=== PATIENT | female | born 1980 | race African-American/Black ===

== ENCOUNTER 2016-12-22 18:19 | Emergency (ER) | payer MEDICAID, OTHER ==
[~2016-12-22] VITALS: Ht 170.2 cm; Wt 100.0 kg
[~2016-12-22 18:19] MED LIST: BACT2OIN TOP; BACT800T5 PO; HIBI4LIQ TOP
[2016-12-22 18:21] VITALS: BP 130/80; PULSE 110; RESP 15; TEMP 99.1; O2SAT 96
--- NOTE | 2016-12-22 19:28 | PD ---
HPI Chief Complaint: ENT Complaint Time Seen by Provider: 19:27 Travel History International Travel<30 days: No Contact w/Intl Traveler<30days: No Traveled to known affect area: No History of Present Illness HPI 36-year-old black female presents with a 24-hour history of fever, chills, headache, sore throat, myalgias, arthralgias, congestion, cough, nausea, vomiting and general malaise. She denies any abdominal pain. No dysuria or frequency. No diarrhea. No rashes or lesions. She did not get the flu shot this year. Symptoms are moderate. She has not taking anything for her fever or pain today. PFSH Past Medical History Cancer: No Cardiovascular Problems: Yes Gastrointestinal Disorders: Yes GERD: Yes ('SEVERAL YRS AGO') Hypertension: Yes Musculoskeletal: No Neurologic: No Respiratory: No Past Surgical History Abdominal Surgery: No Cardiac Surgery: No Cholecystectomy: Yes Ear Surgery: No Endocrine Surgery: No Eye Surgery: No Genitourinary Surgery: No Gynecologic Surgery: No Oral Surgery: No Thoracic Surgery: No Other Surgery: Yes Social History Alcohol Use: No ("RARELY") Tobacco Use: Yes (1/2 PPD) Substance Use: Yes (WEED DAILY) Allergies-Medications (Allergen,Severity, Reaction): Coded Allergies: Latex (Verified Allergy, Severe, MOUTH BROKE OUT AT DENTIST, 06/24/16) Reported Meds & Prescriptions Reported Meds & Active Scripts Active Zofran (Ondansetron HCl) 4 Mg Tab 4 Mg PO Q6HR PRN Amoxicillin 500 Mg Tab 1,000 Mg PO BID Review of Systems Except as stated in HPI: all other systems reviewed are Neg Physical Exam Narrative GENERAL: Well-nourished, well-developed patient. SKIN: Warm and dry. HEAD: Normocephalic. EYES: No scleral icterus. No injection or drainage. NECK: Supple, trachea midline. No JVD or lymphadenopathy. CARDIOVASCULAR: Regular rate and rhythm without murmurs, gallops, or rubs. RESPIRATORY: Breath sounds equal bilaterally. No accessory muscle use. GASTROINTESTINAL: Abdomen soft, non-tender, nondistended. MUSCULOSKELETAL: No cyanosis, or edema. BACK: Nontender without obvious deformity. No CVA tenderness. Data Data Last Documented VS Vital Signs Date Time Temp Pulse Resp B/P Pulse Ox O2 Delivery O2 Flow Rate FiO2 12/22/16 18:21 99.1 110 15 130/80 96 Orders Group A Rapid Strep Screen (12/22/16 19:26) Ibuprofen (Motrin) (12/22/16 19:30) Ondansetron Odt (Zofran Odt) (12/22/16 20:00) MDM Medical Decision Making Medical Screen Exam Complete: Yes Emergency Medical Condition: Yes Medical Record Reviewed: Yes Interpretation(s) Rapid strep: Positive for group A strep Differential Diagnosis MDM: High Differential diagnoses: Pneumonia, bronchitis, URI, asthma, RAD, influenza Narrative Course Patient is given Motrin 800 mg and Zofran 4 mg by mouth and a rapid strep is been ordered. Patient's rapid strep is positive. This acute strep pharyngitis Diagnosis Primary Impression: Acute streptococcal pharyngitis Patient Instructions: General Instructions Departure Forms: Tests/Procedures, Work Release Special Instructions: No work 3-5 days. Additional Instructions: Rest. Force fluids. Saltwater gargles. Tylenol and Advil. Chloraseptic [place] Cepastat lozenge. Amoxicillin, and Zofran. Follow-up with a primary care doctor in 3-7 days. Return to the ER if any problems. Med/Other Pt SpecificInfo: Prescription(s) given Scripts Ondansetron (Zofran)4 Mg Tab4 Mg PO Q6HR PRN (NAUSEA OR VOMITING) #6 TAB Prov:Alysia Gamez DO 12/22/16 Amoxicillin 500 Mg Tab1,000 Mg PO BID #40 TAB Prov:Alysia Gamez DO 12/22/16 Disposition: 01 DISCHARGE HOME Condition: Stable Papo Cantor Dec 22, 2016 19:28
[2016-12-22] MEDS ORDERED: IBUPROFEN 800 MG TAB PO ONE (19:30)
[2016-12-22] MEDS ORDERED: ONDANSETRON ODT 4 MG TAB PO ONE (20:00)
[2016-12-22] MEDS ORDERED: AMOX500T PO (20:21)
[2016-12-22] MEDS ORDERED: ZOFR4TAB PO (20:21)
[2016-12-22] MEDS ORDERED: AMOXICILLIN (TRIHYDRATE) 500 MG CAP PO ONE (20:30)
== END 2016-12-22 20:49 | disposition home or self-care (01) ==
LOC: NEPB 18:19
DX: J02.0 Streptococcal pharyngitis (principal); B95.0 Streptococcus, group A, as the cause of diseases classified elsewhere; I10 Essential (primary) hypertension; F17.210 Nicotine dependence, cigarettes, uncomplicated
CPT/HCPCS: 87880; 99283

== ENCOUNTER 2017-04-05 21:29 | Inpatient (IN) | payer SELFPAY ==
[~2017-04-05] VITALS: Ht 170.2 cm; Wt 100.0 kg
[~2017-04-05 21:29] MED LIST changes: +AMOX500T PO; -BACT2OIN TOP; -BACT800T5 PO; -HIBI4LIQ TOP; +ZOFR4TAB PO
[2017-04-05 21:33] VITALS: BP 138/91; PULSE 93; RESP 16; TEMP 98.6; O2SAT 100
[2017-04-05] MEDS ORDERED: SODIUM CHLORIDE 0.9% FLUSH 10 ML FLUSH IVF PRN (22:00)
--- NOTE | 2017-04-05 22:01 | PD ---
HPI Chief Complaint: Chest Pain Time Seen by Provider: 21:58 Travel History International Travel<30 days: No Contact w/Intl Traveler<30days: No Traveled to known affect area: No History of Present Illness HPI 36-year-old female presents to the emergency department for evaluation of left breast pain as well as left chest pain. She states this started approximately 3 days ago. She states she has had left breast pain in the past, but this is different. She states it was not painful before, but it is now painful. She states the chest pain is different than the breast pain. She denies any cardiac history. No family history of cardiac disease. She is unsure if the pain in her chest is radiating up from the breast. She has no fevers or chills. No shortness of breath. No diaphoresis. No vomiting. No abdominal pain. She has no chronic medical problems and takes no prescriptions. No recent surgery or travel. No leg edema. No hemoptysis. No history DVT/PE. PFSH Past Medical History Cancer: No Cardiovascular Problems: Yes Gastrointestinal Disorders: Yes GERD: Yes ('SEVERAL YRS AGO') Hypertension: Yes Musculoskeletal: No Neurologic: No Respiratory: No Past Surgical History Abdominal Surgery: No Cardiac Surgery: No Cholecystectomy: Yes Ear Surgery: No Endocrine Surgery: No Eye Surgery: No Genitourinary Surgery: No Gynecologic Surgery: No Oral Surgery: No Thoracic Surgery: No Other Surgery: Yes Social History Alcohol Use: No ("RARELY") Tobacco Use: Yes (1/2 PPD) Substance Use: Yes (WEED DAILY) Allergies-Medications (Allergen,Severity, Reaction): Coded Allergies: Latex (Verified Allergy, Severe, MOUTH BROKE OUT AT DENTIST, 06/24/16) Reported Meds & Prescriptions Reported Meds & Active Scripts Active Zofran (Ondansetron HCl) 4 Mg Tab 4 Mg PO Q6HR PRN Amoxicillin 500 Mg Tab 1,000 Mg PO BID Review of Systems Except as stated in HPI: all other systems reviewed are Neg Physical Exam Narrative GENERAL: Well-nourished, well-developed female patient, ambulatory. Afebrile. SKIN: Focused skin assessment warm/dry. Left breast is erythematous with a small area of induration at the 12 o'clock position just above the areola. HEAD: Normocephalic. Atraumatic. EYES: No scleral icterus. No injection or drainage. NECK: Supple, trachea midline. No JVD or lymphadenopathy. CARDIOVASCULAR: Regular rate and rhythm without murmurs, gallops, or rubs. RESPIRATORY: Breath sounds equal bilaterally. No accessory muscle use. Lungs sounds are clear to auscultation. GASTROINTESTINAL: Abdomen soft, non-tender, nondistended. MUSCULOSKELETAL: No cyanosis, or edema. BACK: Nontender without obvious deformity. No CVA tenderness. Data Data Last Documented VS Vital Signs Date Time Temp Pulse Resp B/P Pulse Ox O2 Delivery O2 Flow Rate FiO2 04/05/17 21:33 98.6 93 16 138/91 100 Room Air Orders Electrocardiogram (04/05/17 21:56) Basic Metabolic Panel (Bmp) (04/05/17 21:56) Ckmb (Isoenzyme) Profile (04/05/17 21:56) Complete Blood Count With Diff (04/05/17 21:56) Magnesium (Mg) (04/05/17 21:56) Troponin I (04/05/17 21:56) Chest, Single Ap (04/05/17 21:56) Ecg Monitoring (04/05/17 21:56) Bilateral Bp Monitoring (04/05/17 21:56) Iv Access Insert/Monitor (04/05/17 21:56) Oximetry (04/05/17 21:56) Oxygen Administration (04/05/17 21:56) Sodium Chloride 0.9% Flush (Ns Flush) (04/05/17 22:00) Us Breast Unilateral (04/05/17 ) Labs Laboratory Tests Test 04/05/17 22:01 White Blood Count 9.5 TH/MM3 Red Blood Count 4.43 MIL/MM3 Hemoglobin 12.9 GM/DL Hematocrit 38.9 % Mean Corpuscular Volume 88.0 FL Mean Corpuscular Hemoglobin 29.1 PG Mean Corpuscular Hemoglobin 33.1 % Concent Red Cell Distribution Width 14.4 % Platelet Count 345 TH/MM3 Mean Platelet Volume 7.8 FL Neutrophils (%) (Auto) 55.1 % Lymphocytes (%) (Auto) 34.6 % Monocytes (%) (Auto) 8.0 % Eosinophils (%) (Auto) 2.0 % Basophils (%) (Auto) 0.3 % Neutrophils # (Auto) 5.2 TH/MM3 Lymphocytes # (Auto) 3.3 TH/MM3 Monocytes # (Auto) 0.8 TH/MM3 Eosinophils # (Auto) 0.2 TH/MM3 Basophils # (Auto) 0.0 TH/MM3 CBC Comment DIFF FINAL Differential Comment Sodium Level 141 MEQ/L Potassium Level 3.7 MEQ/L Chloride Level 105 MEQ/L Carbon Dioxide Level 29.8 MEQ/L Anion Gap 6 MEQ/L Blood Urea Nitrogen 7 MG/DL Creatinine 0.73 MG/DL Estimat Glomerular Filtration 110 ML/MIN Rate Random Glucose 89 MG/DL Calcium Level 9.0 MG/DL Magnesium Level 2.3 MG/DL MDM Medical Decision Making Medical Screen Exam Complete: Yes Emergency Medical Condition: Yes Medical Record Reviewed: Yes Interpretation(s) chest x-ray - CONCLUSION: No acute disease. Differential Diagnosis Breast cellulitis versus abscess versus chest wall pain versus unlikely ACS Narrative Course 36-year-old female presents to the emergency department for evaluation of left breast pain as well as left chest pain. Physical exam revealed erythema and induration to the left breast. EKG, CBC, BMP, CK, troponin, magnesium, chest x- ray, ultrasound left breast are ordered and pending. EKG shows sinus rhythm, heart rate 80, no acute ST changes. CBC is unremarkable. BMP is unremarkable. CK and Troponin are pending. Magnesium is 2.3. Chest x-ray shows no acute disease. US of the left breast is pending. Dr. Hameed will follow up on ck, troponin, and US. Kayli Apodaca April 05, 2017 22:01
[2017-04-05 22:08] LABS: AUTOMATED NEUTROPHIL # 5.2 TH/MM3 (1.8-7.7); BASOPHIL % 0.3 % (0.0-2.0); EOSINOPHIL # 0.2 TH/MM3 (0-0.4); HEMATOCRIT 38.9 % (35.0-46.0); HEMO FLAGS DIFF FINAL; LYMPH % 34.6 % (9.0-44.0); LYMPHOCYTE # 3.3 TH/MM3 (1.0-4.8); MEAN CORPUSCULAR HEMOGLOBIN 29.1 PG (27.0-34.0); MEAN CORPUSCULAR HGB CONC 33.1 % (32.0-36.0); NEUT % 55.1 % (16.0-70.0); PLATELET COUNT 345 TH/MM3 (150-450); RED BLOOD COUNT 4.43 MIL/MM3 (4.00-5.30); RED CELL DISTRIBUTION WIDTH 14.4 % (11.6-17.2); WHITE BLOOD COUNT 9.5 TH/MM3 (4.0-11.0)
--- NOTE | 2017-04-05 22:20 | RADRPT ---
EXAM DATE/TIME: 04/05/2017 22:06 [facility] COMPARISON: No previous studies available for comparison. INDICATIONS : Chest pain. MEDICAL HISTORY : None. SURGICAL HISTORY : None. ENCOUNTER: Initial ACUITY: 1 day PAIN SCORE: 0/10 LOCATION: Bilateral chest FINDINGS: A single view of the chest demonstrates the lungs to be symmetrically aerated without evidence of mas s, infiltrate or effusion. The cardiomediastinal contours are unremarkable. Osseous structures are intact. CONCLUSION: No acute disease. Seferino Aguilera MD FACR on April 05, 2017 at 22:17 Board Certified Radiologist. This report was verified electronically.
[2017-04-05 22:41] LABS: ANION GAP 6 MEQ/L (5-15); BICARBONATE 29.8 MEQ/L (21.0-32.0); BLOOD UREA NITROGEN 7 MG/DL (7-18); CHLORIDE 105 MEQ/L (98-107); GLOMERULAR FILTRATION RATE 110 ML/MIN (>89); MAGNESIUM 2.3 MG/DL (1.5-2.5); POTASSIUM 3.7 MEQ/L (3.5-5.1); SODIUM (NA) 141 MEQ/L (136-145)
[2017-04-05 22:58] VITALS: BP 118/78; PULSE 70; RESP 16; O2SAT 98
[2017-04-05] MEDS ORDERED: ceFAZolin 2 GM PREMIX 50 ML IV ONE (23:00)
[2017-04-05 23:02] LABS: CREATINE KINASE 113 U/L (26-192)
--- NOTE | 2017-04-05 23:02 | PD ---
Data Data Last Documented VS Vital Signs Date Time Temp Pulse Resp B/P Pulse Ox O2 Delivery O2 Flow Rate FiO2 04/05/17 22:58 70 16 118/78 98 Room Air 04/05/17 21:33 98.6 Orders Electrocardiogram (04/05/17 21:56) Basic Metabolic Panel (Bmp) (04/05/17 21:56) Ckmb (Isoenzyme) Profile (04/05/17 21:56) Complete Blood Count With Diff (04/05/17 21:56) Magnesium (Mg) (04/05/17 21:56) Troponin I (04/05/17 21:56) Chest, Single Ap (04/05/17 21:56) Ecg Monitoring (04/05/17 21:56) Bilateral Bp Monitoring (04/05/17 21:56) Iv Access Insert/Monitor (04/05/17 21:56) Oximetry (04/05/17 21:56) Oxygen Administration (04/05/17 21:56) Sodium Chloride 0.9% Flush (Ns Flush) (04/05/17 22:00) Us Breast Unilateral (04/05/17 ) Cefazolin 2 Gm Premix (Ancef 2 Gm Premix (04/05/17 23:00) CKMB (04/05/17 22:01) CKMB% (04/05/17 22:01) Admit Order (Ed Use Only) (04/05/17 23:45) Labs Laboratory Tests Test 04/05/17 22:01 White Blood Count 9.5 TH/MM3 Red Blood Count 4.43 MIL/MM3 Hemoglobin 12.9 GM/DL Hematocrit 38.9 % Mean Corpuscular Volume 88.0 FL Mean Corpuscular Hemoglobin 29.1 PG Mean Corpuscular Hemoglobin 33.1 % Concent Red Cell Distribution Width 14.4 % Platelet Count 345 TH/MM3 Mean Platelet Volume 7.8 FL Neutrophils (%) (Auto) 55.1 % Lymphocytes (%) (Auto) 34.6 % Monocytes (%) (Auto) 8.0 % Eosinophils (%) (Auto) 2.0 % Basophils (%) (Auto) 0.3 % Neutrophils # (Auto) 5.2 TH/MM3 Lymphocytes # (Auto) 3.3 TH/MM3 Monocytes # (Auto) 0.8 TH/MM3 Eosinophils # (Auto) 0.2 TH/MM3 Basophils # (Auto) 0.0 TH/MM3 CBC Comment DIFF FINAL Differential Comment Sodium Level 141 MEQ/L Potassium Level 3.7 MEQ/L Chloride Level 105 MEQ/L Carbon Dioxide Level 29.8 MEQ/L Anion Gap 6 MEQ/L Blood Urea Nitrogen 7 MG/DL Creatinine 0.73 MG/DL Estimat Glomerular Filtration 110 ML/MIN Rate Random Glucose 89 MG/DL Calcium Level 9.0 MG/DL Magnesium Level 2.3 MG/DL Total Creatine Kinase 113 U/L Creatine Kinase MB 0.6 NG/ML Troponin I LESS THAN 0.02 NG/ML [facility] Medical Record Reviewed: Yes Supervised Visit with RISHABH: No Interpretation(s) Last Impressions Chest X-Ray 04/05/17 2156 Signed Impressions: Service Date/Time: Wednesday, April 05, 2017 22:06 - CONCLUSION: No acute disease. Seferino Aguilera MD FACR Breast Ultrasound 04/05/17 0000 Signed Impressions: Service Date/Time: Wednesday, April 05, 2017 22:15 - CONCLUSION: Complex hypoechoic mass which could represent a focal abscess, hematoma or seroma. Adelfo Medina MD Narrative Course During the course of the patients emergency department visit, the patients history, examination, and differential diagnosis were reviewed with the patient. The patient had IV access obtained and blood work sent for analysis. The patient was placed on a color television console monitor with oximetry and blood pressure monitoring. The patient was initially seen by Kayli. Please see her complete history and physical. At the conclusion of Kayli's shift, the patient's case was checked out to me. Ultrasound is pending to evaluate for possible underlying breast abscess. The patient was provided Ancef 2 g IV. The patients laboratory studies were reviewed and remarkable for a CBC that is within normal limits, BMP is unremarkable. Radiology studies were reviewed and remarkable for a chest x-ray that shows no acute abnormality. Ultrasound of the breast reveals a complex hypoechoic mass that could represent a focal abscess versus hematoma versus seroma that is 4.4 x 5.4 x 1.1 cm in size with ill-defined goals in the left breast. The patient's case was discussed with the family practice residents. They did agree to admit the patient for further evaluation and treatment at this time. The patients results were discussed with the patient, including the plan of care. I explained that further testing and/ or monitoring is indicated based on the patients history, examination, and/ or laboratory findings. Therefore, I recommended admission for additional evaluation. The patient expressed understanding and was agreeable with this plan. The patient was admitted to the hospital in stable condition and sent to a bed under the care of the family practice residents. Sepsis Criteria SIRS Criteria (2 or more): Heart rate over 90 Physician Communication Physician Communication The patient's case was discussed with the family practice residents who did agree to admit the patient for further evaluation and treatment at this time. Diagnosis Primary Impression: Infection of left breast Admitting Information Admitting Physician Requests: Admit Bernadette Hameed MD April 05, 2017 23:01
--- NOTE | 2017-04-05 23:02 | RADRPT ---
EXAM DATE/TIME: 04/05/2017 22:15 [facility] COMPARISON: No previous studies available for comparison. INDICATIONS : Left breast pain. MEDICAL HISTORY : Hypertension. Gastroesophageal reflux disease. SURGICAL HISTORY : Cholecystectomy. ENCOUNTER: Initial ACUITY: 3 days PAIN SCORE: 7/10 LOCATION: Left breast. FINDINGS: A targeted left breast ultrasound study was performed and demonstrated a complex hypoechoic to anecho ic mass in the upper breast at the 12: 00 position 4 cm from the nipple. This measures up to 4.4 x 5.4 x 1.1 cm with low level internal echo genicity and ill-defined rene. There is areas of through transmission and increased surrounding colo r flow. CONCLUSION: Complex hypoechoic mass which could represent a focal abscess, hematoma or seroma. Adelfo Medina MD on April 05, 2017 at 22:59 Board Certified Radiologist. This report was verified electronically.
[2017-04-05 23:15] LABS: CKMB 0.6 NG/ML (0.5-3.6)
[2017-04-06] VITALS (10 sets, daily range): BP systolic 115–144; BP diastolic 62–92; PULSE 58–75; RESP 14–20; TEMP 96.2–98.2; O2SAT 97–100
[2017-04-06] MEDS ORDERED: ACETAMINOPHEN 325 MG TAB PO PRN
[2017-04-06] MEDS ORDERED: ZOLPIDEM TARTRATE 5 MG TAB PO PRN
[2017-04-06] MEDS ORDERED: NALOXONE HCL 0.4 MG/ML AMP IV PRN
[2017-04-06] MEDS ORDERED: ONDANSETRON HCL 4 MG/2 ML VIAL IVP PRN
[2017-04-06] MEDS ORDERED: SODIUM CHLORIDE 0.9% FLUSH 10 ML FLUSH IV FLUSH PRN
--- NOTE | 2017-04-06 00:01 | HHI.HP ---
[facility] Service Family Medicine Primary Care Physician Unknown Admission Diagnosis Left breast infection Diagnoses: International Travel<30 Days: No Contact w/Intl Traveler<30days: No Known Affected Area: No History of Present Illness This is a 36-year-old -[place] female with no significant past medical history. She presented to the hospital due to left breast pain. The pain started 3 days ago and she thought that it was being caused by her starting her period. However when the pain continued and it worried her. She had similar breast pain in the past 6 months ago, however the pain now is much worse. She noticed some erythema of her breast 2 days ago that has been progressively worsening. Today the pain became so severe that when she was lying down, and touching her breast, pain was intolerable. She describes the pain as a throbbing discomfort. Nothing seemed to help the pain. She denies being or breast-feeding at this time. She is unaware of any traumas to the breast. Of note she claims to have gotten mammograms in the past, with benign breast findings. Also of note she denies any history of abscesses or MRSA infections Review of Systems Constitutional: DENIES: Fatigue, Fever, Weight gain, Weight loss, Chills, Dizziness Endocrine: DENIES: Polyuria Eyes: DENIES: Blurred vision, Vision loss, Double Vision Ears, nose, mouth, throat: COMPLAINS OF: Throat pain, DENIES: Hoarseness, Running Nose, Epistaxis, Sinus Pain Respiratory: DENIES: Cough, Sputum production, Shortness of breath Cardiovascular: DENIES: Chest pain, Syncope Gastrointestinal: DENIES: Black stools, Bloody stools, Diarrhea, Nausea, Vomiting Genitourinary: DENIES: Dysmenorrhea, Urinary frequency, Urinary incontinence Musculoskeletal: DENIES: Joint pain, Muscle aches, Joint Swelling, Neck pain Integumentary: COMPLAINS OF: Rash, Breast masses, DENIES: Nipple discharge Hematologic/lymphatic: DENIES: Bruising Neurologic: DENIES: Abnormal gait, Localized weakness, Seizures, Tremor Psychiatric: DENIES: Anxiety, Depression Past Family Social History Past Medical History none Past Surgical History cholecystectomy Reported Medications Reported Meds & Active Scripts Active Zofran (Ondansetron HCl) 4 Mg Tab 4 Mg PO Q6HR PRN Amoxicillin 500 Mg Tab 1,000 Mg PO BID Allergies: Coded Allergies: Latex (Verified Allergy, Severe, MOUTH BROKE OUT AT DENTIST, 06/24/16) Family History HTN Asthma Social History Live in [place] in a house, with her daughter and girlfriend No pets [employer] Denies smoking occasional alcohol smokes marijuana frequently Physical Exam Vital Signs Vital Signs Date Time Temp Pulse Resp B/P Pulse Ox O2 Delivery O2 Flow Rate FiO2 04/05/17 22:58 70 16 118/78 98 Room Air 04/05/17 21:33 98.6 93 16 138/91 100 Room Air Physical Exam With nurse present GENERAL: This is a well-nourished, well-developed patient, in no apparent distress. SKIN: 7 by 5 cm area of erythema with an area of induration on the left breast. Area of erythema is surrounding the areola HEAD: Atraumatic. Normocephalic. No temporal or scalp tenderness. EYES: Pupils equal round and reactive. Extraocular motions intact. No scleral icterus. No injection or drainage. ENT: Nose without bleeding, purulent drainage or septal hematoma. Throat without erythema, tonsillar hypertrophy or exudate. Uvula midline. Airway patent. NECK: Trachea midline. No JVD or lymphadenopathy. Supple, nontender, no meningeal signs. CARDIOVASCULAR: Regular rate and rhythm without murmurs, gallops, or rubs. RESPIRATORY: Clear to auscultation. Breath sounds equal bilaterally. No wheezes , rales, or rhonchi. GASTROINTESTINAL: Abdomen soft, non-tender, nondistended. No hepato-splenomegaly , or palpable masses. No guarding. MUSCULOSKELETAL: Extremities without clubbing, cyanosis, or edema. No joint tenderness, effusion, or edema noted. No calf tenderness. Negative Homans sign bilaterally. Tender to palpation of the left breast. NEUROLOGICAL: Awake and alert. Cranial nerves II through XII grossly intact. Motor and sensory grossly within normal limits. Five out of 5 muscle strength in all muscle groups. Normal speech. Laboratory Laboratory Tests Test 04/05/17 22:01 White Blood Count 9.5 Red Blood Count 4.43 Hemoglobin 12.9 Hematocrit 38.9 Mean Corpuscular Volume 88.0 Mean Corpuscular Hemoglobin 29.1 Mean Corpuscular Hemoglobin 33.1 Concent Red Cell Distribution Width 14.4 Platelet Count 345 Mean Platelet Volume 7.8 Neutrophils (%) (Auto) 55.1 Lymphocytes (%) (Auto) 34.6 Monocytes (%) (Auto) 8.0 Eosinophils (%) (Auto) 2.0 Basophils (%) (Auto) 0.3 Neutrophils # (Auto) 5.2 Lymphocytes # (Auto) 3.3 Monocytes # (Auto) 0.8 Eosinophils # (Auto) 0.2 Basophils # (Auto) 0.0 CBC Comment DIFF FINAL Differential Comment Sodium Level 141 Potassium Level 3.7 Chloride Level 105 Carbon Dioxide Level 29.8 Anion Gap 6 Blood Urea Nitrogen 7 Creatinine 0.73 Estimat Glomerular Filtration 110 Rate Random Glucose 89 Calcium Level 9.0 Magnesium Level 2.3 Total Creatine Kinase 113 Creatine Kinase MB 0.6 Troponin I LESS THAN 0.02 Result Diagram: 04/05/17220004/05/172200 Imaging Last Impressions Chest X-Ray 04/05/172155 Signed Impressions: Service Date/Time: Wednesday, April 05, 2017 22:06 - CONCLUSION: No acute disease. Seferino Aguilera MD FACR Breast Ultrasound 04/05/17 0000 Signed Impressions: Service Date/Time: Wednesday, April 05, 2017 22:15 - CONCLUSION: Complex hypoechoic mass which could represent a focal abscess, hematoma or seroma. Adelfo Medina MD Assessment and Plan Assessment and Plan This is a 36-year-old -[place] female with no significant past medical history. Admitted for left breast abscess. Code Status Full code Discussed Condition With [facility]: Dr. Hough Problem List: (1) Left breast abscess Status: Acute Plan: Large area of erythema on the left breast. Ultrasound shows complex hypoechoic mass which could represent a focal abscess, hematoma, or seroma. * Admitted to inpatient * Gen. surgery consulted, recommendations appreciated * Start clindamycin 300 mg IV every 8 hr * Tylenol for fever or pain 1-2 * Motrin for pain 1-2 * [place] 5/325 every 4 hours when necessary pain scale 3-5 * [place] 7.5/325 every 4 hours when necessary pain scale 6-10 * CBC, BMP ordered for the a.m. (2) Nutrition, metabolism, and development symptoms Status: Acute Plan: Diet nothing by mouth for possible I&D tomorrow Out of bed ad radha. Vitals every 4 Monitor electrolytes replace accordingly DVT prophylaxis with SCDs, holding, pharmaceutical prophylaxis for possible I&D CODE STATUS: Full code Disposition: Pending general surgery recommendations Physician Certification 2 Midnight Certification Type: Admission for Inpatient Services Order for Inpatient Services The services are ordered in accordance with Medicare regulations or non- Medicare payer requirements, as applicable. In the case of services not specified as inpatient-only, they are appropriately provided as inpatient services in accordance with the 2-midnight benchmark. Estimated LOS (days): 3 days is the estimated time the patient will need to remain in the hospital, assuming treatment plan goals are met and no additional complications. Post-Hospital Plan: Home Ryan Alfaro MD R2 April 06, 2017 00:01
[2017-04-06] MEDS ORDERED: IBUPROFEN 400 MG TAB PO PRN (00:15)
[2017-04-06] MEDS ORDERED: ACETAMINOPHEN/HYDROcodone 325 MG/5 MG TAB PO PRN (00:15)
[2017-04-06] MEDS: CLINDAMYCIN INJ 300 MG in SODIUM CHLORIDE 0.9% INJ 100 ML IV SCH ×3 (04:34→16:24)
[2017-04-06] MEDS: ACETAMINOPHEN/HYDROcodone 325 MG/7.5 MG TAB PO PRN ×2 (08:55→16:23)
[2017-04-06] MEDS ORDERED: SODIUM CHLORIDE 0.9% FLUSH 10 ML FLUSH IV FLUSH SCH (09:00)
--- NOTE | 2017-04-06 10:36 | HHI.FPPN ---
Subjective Remarks Patient seen and examined this morning. She reports that she was seen by a "female who is part of the surgery team" this am and that they are going to try and "drain it rather than going to surgery". Pain medication is helping. Denies fevers or chills, nausea or vomiting. States that she did not get any bug bites or trauma to the chest, and that she did not pick at the skin. Denies nipple discharge. She gets breast cysts with her menstrual cycle about once or twice per year, and asks what could be causing this. (Sarah Hunt MD) Objective Vitals Vital Signs Date Time Temp Pulse Resp B/P Pulse Ox O2 Delivery O2 Flow Rate FiO2 04/06/17 08:02 97.1 66 18 144/74 97 04/06/17 04:00 97.3 75 18 128/73 97 04/06/17 04:00 97.2 75 17 133/77 98 04/06/17 00:35 98.2 68 17 126/73 98 04/06/17 00:18 65 16 115/62 98 04/06/17 00:01 98 04/05/17 22:58 70 16 118/78 98 Room Air 04/05/17 21:33 98.6 93 16 138/91 100 Room Air (Sarah Hunt MD) Result Diagram: 04/05/17220004/05/172200 Imaging Last Impressions Chest X-Ray 04/05/172155 Signed Impressions: Service Date/Time: Wednesday, April 05, 2017 22:06 - CONCLUSION: No acute disease. Seferino Aguilera MD FACR Breast Ultrasound 04/05/17 0000 Signed Impressions: Service Date/Time: Wednesday, April 05, 2017 22:15 - CONCLUSION: Complex hypoechoic mass which could represent a focal abscess, hematoma or seroma. Adelfo Medina MD Objective Remarks GENERAL: This is a well-nourished, well-developed patient, in no apparent distress. SKIN: About an 8cm area of erythema with an area of induration on the left breast. Area of erythema is surrounding the areola CARDIOVASCULAR: Regular rate and rhythm without murmurs, gallops, or rubs. RESPIRATORY: Clear to auscultation. Breath sounds equal bilaterally. No wheezes , rales, or rhonchi. GASTROINTESTINAL: Abdomen soft, non-tender, nondistended. MUSCULOSKELETAL: Extremities without clubbing, cyanosis, or edema. Tender to palpation of the left breast. NEUROLOGICAL: Awake and alert. Normal speech. (Sarah Hunt MD) A/P Assessment and Plan This is a 36-year-old -[place] female with no significant past medical history. Admitted for left breast abscess. Discharge Planning Pending general surgery recommendations (Sarah Hunt MD) Attending Attestation Patient seen and examined. Case reviewed and discussed with the resident team. Agree with plan of care as discussed with me and documented in the resident note (Kj Hough MD) Problem List: (1) Left breast abscess Status: Acute Plan: Large area of erythema on the left breast. Ultrasound shows complex hypoechoic mass which could represent a focal abscess, hematoma, or seroma. * Gen. surgery consulted, recommendations appreciated. * Continue clindamycin 300 mg IV every 8 hr * Tylenol PRN fever or pain * Motrin PRN pain * [place] 5/325 every 4 hours when necessary pain scale 3-5 * [place] 7.5/325 every 4 hours when necessary pain scale 6-10 (2) Nutrition, metabolism, and development symptoms Status: Acute Plan: Diet nothing by mouth for possible surgical intervention today Out of bed ad radha. Vitals every 4 Monitor electrolytes replace accordingly DVT prophylaxis with SCDs, holding, pharmaceutical prophylaxis for possible surgical intervention CODE STATUS: Full code (Sarah Hunt MD) Sarah Hunt MD April 06, 2017 10:36 Kj Hough MD April 07, 2017 09:14
[2017-04-06] MEDS ORDERED: LIDOCAINE HCL 1% PF 30 ML VIAL ONE (13:50)
--- NOTE | 2017-04-06 14:00 | PD.CONS ---
cc: Adelfo Cortez MD HPI Service General Surgery Consult Requested By Family Medicine Residents Reason for Consult Evaluation of LEFT breast abscess Primary Care Physician Unknown History of Present Illness This is a 36 year old female with no medical history who presets to the ED with increased pressure, erythema and tenderness of her LEFT breast. She denies fevers or chills at home. She noticed her LEFT breast was slightly tender and "swollen" feeling about 8 days but increased in pain on Thursday. She was unsure if the symptoms were related to her menstrual cycle. A General Surgery consultation has been requested to evaluate LEFT breast abscess. Review of Systems Constitutional: DENIES: Fatigue, Fever, Chills Endocrine: DENIES: Abnorml menstrual pattern Eyes: DENIES: Blurred vision Ears, nose, mouth, throat: DENIES: Hearing loss, Vertigo Respiratory: DENIES: Apneas, Cough Cardiovascular: DENIES: Chest pain Gastrointestinal: DENIES: Abdominal pain Genitourinary: DENIES: Urinary frequency, Urinary incontinence Musculoskeletal: DENIES: Joint pain Integumentary: COMPLAINS OF: Breast skin changes (tender to palpation; redness superior to nipple ) Hematologic/lymphatic: DENIES: Bruising Immunologic/allergic: DENIES: Eczema Neurologic: DENIES: Headache, Localized weakness Psychiatric: DENIES: Confusion, Mood changes, Depression Past Family Social History Past Medical History None Past Surgical History Laparoscopic cholecystectomy Reported Medications No home medications Allergies: Coded Allergies: Latex (Verified Allergy, Severe, MOUTH BROKE OUT AT DENTIST, 06/24/16) Active Ordered Medications Current Medications Medications (Trade) Dose Ordered Sig/Jori Route Start Time Stop Time Status Last Admin (NS Flush) 2 ml UNSCH PRN IV FLUSH 04/06/17 00:00 (NS Flush) 2 ml BID IV FLUSH 04/06/17 09:00 04/06/17 08:56 (Tylenol) 650 mg Q4H PRN PO 04/06/17 00:00 (Zofran Inj) 4 mg Q6H PRN IVP 04/06/17 00:00 04/06/17 08:56 (Ambien) 5 mg HS PRN PO 04/06/17 00:00 Naloxone HCl 0.4 mg 0.4 mg UNSCH PRN IV 04/06/17 00:00 (Cleocin Inj/NS Inj) 102 ml @ 104 mls/hr Q8H IV 04/06/17 00:15 04/06/17 08:56 (Motrin) 400 mg Q6H PRN PO 04/06/17 00:15 (Bruno 5-325 Mg) 1 tab Q4H PRN PO 04/06/17 00:15 (Bruno 7.5-325 Mg) 1 tab Q4H PRN PO 04/06/17 00:15 04/06/17 08:55 Family History No family history of breast cancer Social History Denies tobacco use Occasional ETOH use + marijuana use Physical Exam Vital Signs Vital Signs Date Time Temp Pulse Resp B/P Pulse Ox O2 Delivery O2 Flow Rate FiO2 04/06/17 12:28 96.2 67 20 122/76 100 04/06/17 08:05 98 21 04/06/17 08:02 97.1 66 18 144/74 97 04/06/17 04:00 97.3 75 18 128/73 97 04/06/17 04:00 97.2 75 17 133/77 98 04/06/17 00:35 98.2 68 17 126/73 98 04/06/17 00:18 65 16 115/62 98 04/06/17 00:01 98 04/05/17 22:58 70 16 118/78 98 Room Air 04/05/17 21:33 98.6 93 16 138/91 100 Room Air Physical Exam GENERAL: Pleasant 36 year old female resting in bed in no acute distress. SKIN: LEFT breast---- hardened area with erythema at the 2 o'clock position; tenderness with palpation. Otherwise unremarkable. HEAD: Atraumatic. Normocephalic. EYES: Pupils equal and round. No scleral icterus. No injection or drainage. ENT: No nasal bleeding or discharge. Mucous membranes pink and moist. NECK: Trachea midline. CARDIOVASCULAR: Regular rate and rhythm. RESPIRATORY: No accessory muscle use. Clear to auscultation. Breath sounds equal bilaterally. GASTROINTESTINAL: Abdomen soft, non-tender, nondistended. MUSCULOSKELETAL: Extremities without clubbing, cyanosis, or edema. No obvious deformities. NEUROLOGICAL: Awake and alert. No obvious cranial nerve deficits. Motor grossly within normal limits. Five out of 5 muscle strength in the arms and legs. Normal speech. PSYCHIATRIC: Appropriate mood and affect; insight and judgment normal. Laboratory Laboratory Tests Test 04/05/17 22:01 White Blood Count 9.5 Red Blood Count 4.43 Hemoglobin 12.9 Hematocrit 38.9 Mean Corpuscular Volume 88.0 Mean Corpuscular Hemoglobin 29.1 Mean Corpuscular Hemoglobin 33.1 Concent Red Cell Distribution Width 14.4 Platelet Count 345 Mean Platelet Volume 7.8 Neutrophils (%) (Auto) 55.1 Lymphocytes (%) (Auto) 34.6 Monocytes (%) (Auto) 8.0 Eosinophils (%) (Auto) 2.0 Basophils (%) (Auto) 0.3 Neutrophils # (Auto) 5.2 Lymphocytes # (Auto) 3.3 Monocytes # (Auto) 0.8 Eosinophils # (Auto) 0.2 Basophils # (Auto) 0.0 CBC Comment DIFF FINAL Differential Comment Sodium Level 141 Potassium Level 3.7 Chloride Level 105 Carbon Dioxide Level 29.8 Anion Gap 6 Blood Urea Nitrogen 7 Creatinine 0.73 Estimat Glomerular Filtration 110 Rate Random Glucose 89 Calcium Level 9.0 Magnesium Level 2.3 Total Creatine Kinase 113 Creatine Kinase MB 0.6 Troponin I LESS THAN 0.02 Result Diagram: 04/05/17220004/05/172200 Assessment and Plan Assessment and Plan 36 year old female with LEFT breast abscess. -IR consult for aspiration of LEFT breast abscess -Primary to manage antibiotics -Spoke with Dr. Aguilera---2 cc of purulent fluid removed--sent for gram stain and culture -Follow up cultures -Diet as tolerated -Pain control -Discussed plan with Dr. Cortez -Thank you for this consult; we will follow along with you Attending Note - Dr. Cortez Stable improved with aspiration Continue antibiotics Likely no surgery The exam, history, and the medical decision-making described in the above note were completed with the assistance of the mid-level provider. I reviewed and agree with the findings presented. I attest that I had a [id number] encounter with the patient on the same day, and personally performed and documented my assessment and findings in the medical record. Discussed Condition With Mariana Naranjo Dr., Ms. April 06, 2017 14:00 Adelfo Crotez MD April 06, 2017 19:39
--- NOTE | 2017-04-06 14:40 | EKG ---
Date Performed: 04/05/2017 Time Performed: 21:46:38 PTAGE: 36 years EKG: Sinus rhythm LOW QRS VOLTAGE IN PRECORDIAL LEADS POOR R WAVE PROGRESSION, POSSIBLE NORMAL VARIANT BORDERLINE ECG NO PREVIOUS TRACING DOCTOR: Ryan Vences Interpretating Date/Time 04/06/2017 16:12:40
--- NOTE | 2017-04-06 15:01 | RADRPT ---
EXAM DATE/TIME: 04/06/2017 12:41 [facility] COMPARISON: No previous studies available for comparison. INDICATIONS : Left breast abscess. MEDICAL HISTORY : Hypertension. Gastroesophageal reflux disease. SURGICAL HISTORY : Cholecystectomy ENCOUNTER: Subsequent ACUITY: 3 days PAIN SCORE: 5/10 LOCATION: Left breast. FLUID: Total volume of 2 cc of cloudy, red pus was removed. Fluid was sent to lab for ordered studies. Post procedure scanning reveals no hematoma or other complication. TECHNIQUE: 1. Ultrasound guidance for abscess drainage. 2. Abscess drainage. The risks, benefits, and alternatives to ultrasound guided abscess drainage were explained to the [facility] ient in detail including the risk of bleeding and infection. Written and verbal informed consent was obtained. With the patient on the ultrasound table, the patient was used to aspirate 2 cc of pus from the absce ss pocket. There was no residual fluid left. CONCLUSION: Uncomplicated abscess drainage. Material was sent for Gram stain and culture. There is no residual fluid left. Seferino Aguilera MD FACR on April 06, 2017 at 14:51 Board Certified Radiologist. This report was verified electronically.
--- NOTE | 2017-04-06 15:02 | RADRPT ---
EXAM DATE/TIME: 04/06/2017 10:01 [facility] COMPARISON: No previous studies available for comparison. INDICATIONS : Left breast abscess FINDINGS: Ultrasound will be used to aspirate the abscess and placement of drainage catheter if possible. Seferino Aguilera MD FACR on April 06, 2017 at 14:59 Board Certified Radiologist. This report was verified electronically.
[2017-04-06] MEDS ORDERED: HYDR-3516 PO (19:23)
[2017-04-06] MEDS ORDERED: CLIN1CAP6 PO ×2 (19:23→19:26)
--- NOTE | 2017-04-06 19:25 | HHI.DCPOC ---
Discharge Care Plan Diagnosis: (1) Left breast abscess Goals to Promote Your Health * To prevent worsening of your condition and complications, please take medications as prescribed. * To maintain your health at the optimal level, please follow up with your primary care provider. Directions to Meet Your Goals Take your medications as prescribed Follow your dietary instruction Follow activity as directed Keep your appointments as scheduled Take your immunizations and boosters as scheduled If your symptoms worsen call your PCP, if no PCP go to Urgent Care Center or Emergency Room Smoking is Dangerous to Your Health. Avoid second hand smoke Call the 24-hour hour crisis hotline for domestic abuse at Adelfo Dickson MD R1 April 06, 2017 19:25
--- NOTE | 2017-04-06 22:07 | MB ---
cc: GAVIN GRIFFITHS M.D. DATE OF CONSULTATION 04/06/2017 SUMMARY Kandace Brooks my nurse practitioner has already seen the patient. Please see her dictation for the history and physical. I have discussed with the patient the course of her illness. Imaging demonstrated left breast abscess. She is to undergo ultrasound-guided aspiration. This was performed and the patient reports that she now has decreased pain and redness. At the bedside the breast is soft and there is no induration noted. ASSESSMENT Left breast abscess. PLAN Continue antibiotics. If pain increases, we will send for re-imaging but likely will not require any operative intervention at this point. Thank you for allowing me the opportunity to care for this patient with you. MD MAUREEN Bernal/KK /7:29 PM /10:01 PM
[2017-04-07 01:02] LABS: MRSA PCR NEGATIVE (NEGATIVE); STAPH AUREUS PCR NEGATIVE (NEGATIVE)
== END 2017-04-06 20:45 | disposition home or self-care (01) | DRG 601 ==
LOC: NEPC 21:29 → NEDA 23:48 → HOCB 04-06 00:26
PROVIDERS: ADMIT Family Medicine; ATTEND Family Medicine
DX: N61.1 Abscess of the breast and nipple (principal); I10 Essential (primary) hypertension; K21.9 Gastro-esophageal reflux disease without esophagitis; F12.90 Cannabis use, unspecified, uncomplicated
CPT/HCPCS: 10160; 71010; 75989; 76642; 80048; 82550; 82552; 83735; 84484; 85025; 87070; 87081; 87205; 87640; 87641; 93005; 96365; J0690; J2405

== ENCOUNTER 2017-06-06 09:07 | Emergency (ER) | payer SELFPAY ==
[~2017-06-06] VITALS: Ht 170.2 cm; Wt 102.0 kg
[~2017-06-06 09:07] MED LIST changes: -AMOX500T PO; +CLIN1CAP6 PO; +HYDR-3516 PO
[2017-06-06 09:09] VITALS: BP 143/84; PULSE 78; RESP 20; TEMP 97.7; O2SAT 99
--- NOTE | 2017-06-06 09:37 | PD ---
HPI . left axilla bumps Chief Complaint: Skin Problem Time Seen by Provider: 09:37 Travel History International Travel<30 days: No Contact w/Intl Traveler<30days: No Traveled to known affect area: No History of Present Illness HPI 36-year-old female with history of recurrent abscesses here with complaints of abscesses to her left axilla. Patient tells me that they have been draining and she is here for antibiotics. Her primary care provider, but has not seen her for these issues. She denies any fever or chills and has no other complaints. She tells me that she knows that she does not need incision and drainage and only wants antibiotics. PFSH Past Medical History Hx Anticoagulant Therapy: No Cancer: No Cardiovascular Problems: No Chemotherapy: No Cerebrovascular Accident: No Diabetes: No Gastrointestinal Disorders: Yes GERD: Yes ('SEVERAL YRS AGO') Hypertension: Yes Musculoskeletal: No Neurologic: No Respiratory: No ?: Not LMP: 06/03/17 Past Surgical History Abdominal Surgery: No Cardiac Surgery: No Cholecystectomy: Yes Ear Surgery: No Endocrine Surgery: No Eye Surgery: No Genitourinary Surgery: No Gynecologic Surgery: No Hysterectomy: No Oral Surgery: No Thoracic Surgery: No Other Surgery: Yes Social History Alcohol Use: Yes ("RARELY") Tobacco Use: Yes (1/2 PPD) Substance Use: Yes (WEED DAILY) Allergies-Medications (Allergen,Severity, Reaction): Coded Allergies: Latex (Verified Allergy, Severe, MOUTH BROKE OUT AT DENTIST, 06/06/17) Reported Meds & Prescriptions Reported Meds & Active Scripts Active Bactrim DS (Sulfamethoxazole-Trimethoprim) 800-160 Mg Tab 1 Tab PO BID Clindamycin (Clindamycin HCl) 300 Mg Cap 300 Mg PO Q6H Review of Systems General / Constitutional: No: Fever Eyes: No: Visual changes HENT: No: Headaches Cardiovascular: No: Chest Pain or Discomfort Respiratory: No: Shortness of Breath Gastrointestinal: No: Abdominal Pain Genitourinary: No: Dysuria Musculoskeletal: No: Pain Skin: Positive Lumps (left axilla two small 1 cm induration ), No Rash, No Itching Neurologic: No: Weakness Psychiatric: No: Depression Endocrine: No: Polydipsia Hematologic/Lymphatic: No: Easy Bruising Physical Exam Narrative GENERAL: AAO x 3, no acute distress, Well-nourished, well-developed patient. SKIN: Warm and dry. No visible rashes or bruising. left axilla with two small 1 cm indurations with erythema, no fluctuance, no visible drainage present, no definitive abscess, hidradenitis appearing HEAD: Normocephalic and atraumatic. EYES: No scleral icterus. No injection or drainage. ENT: No nasal drainage noted. Mucous membranes pink. Airway patent. NECK: Supple, trachea midline. No JVD. No lymphadenopathy CARDIOVASCULAR: Regular rate and rhythm without murmurs, gallops, or rubs. RESPIRATORY: Breath sounds equal bilaterally. No accessory muscle use. No rhonchi or rales. GASTROINTESTINAL: Abdomen soft, non-tender, nondistended. EXTREMITIES: No cyanosis or edema. BACK: No obvious deformity. NEURO: CN II-12 intact, PSYCH: AAO x 3, normal affect. Data Data Last Documented VS Vital Signs Date Time Temp Pulse Resp B/P Pulse Ox O2 Delivery O2 Flow Rate FiO2 06/06/17 09:09 97.7 78 20 143/84 99 Room Air MDM Medical Decision Making Medical Screen Exam Complete: Yes Emergency Medical Condition: Yes Medical Record Reviewed: Yes Differential Diagnosis hidradenitis suppurativa, less likely abscess, folliculitis Narrative Course 36-year-old female here with what appears to be hydradenitis suppurativa. There is no definitive abscess for drainage. I have explained this to her and she is understanding. I recommend a course of antibiotics. I advised f/u with PCP for consult with surgeon. I advised patient to keep the area. Patient verbalized understanding of instructions, questions were answered, and thanked me for their care. I advised them if their condition worsens, please return to the nearest emergency room for further care. Diagnosis Primary Impression: Hidradenitis suppurativa Patient Instructions: General Instructions Additional Instructions: Please return to emergency department if your symptoms return or worsen. Follow up with your primary care provider. Take medications as prescribed. Follow-up with your primary care provider as you will need to have a referral to general surgeon for definitive treatment of this issue. Med/Other Pt SpecificInfo: Prescription(s) given Scripts Sulfamethoxazole-Trimethoprim (Bactrim DS)800-160 Mg Tab1 Tab PO BID #20 TAB Prov:Kathy Sanchez MD 06/06/17 Disposition: 01 DISCHARGE HOME Condition: Stable Pretty Han Jun 06, 2017 09:37
[2017-06-06] MEDS ORDERED: BACT800T5 PO (09:38)
== END 2017-06-06 09:53 | disposition home or self-care (01) ==
LOC: NEPD 09:07
DX: L73.2 Hidradenitis suppurativa (principal)
CPT/HCPCS: 99283